=== PATIENT | female | born 1960 | race Caucasian/White ===

== ENCOUNTER 2022-10-08 05:35 | Inpatient (IN) | payer MEDICARE, OTHER ==
[2022-10-08] VITALS (7 sets, daily range): BP systolic 90–144; BP diastolic 60–77; TEMP 97.7–98.4; O2SAT 94–99
[~2022-10-08] VITALS: Ht 167.6 cm; Wt 88.0 kg
[2022-10-08] MEDS ORDERED: dexaMETHasone SOD PHOSPHATE 10 MG/ML VIAL ONE (06:58)
[2022-10-08] MEDS ORDERED: LIDOCAINE 2%-EPI 1:100,000 30 ML VIAL ONE (06:58)
[2022-10-08] MEDS ORDERED: VANCOMYCIN 1 GM VIAL ONE (06:58)
[2022-10-08] MEDS ORDERED: ANESTHESIA TRAY IN PYXIS 1 EA TRAY MC ONE (06:59)
[2022-10-08] MEDS ORDERED: FENTANYL PF 100MCG/2ML AMPUL ONE (07:12)
[2022-10-08] MEDS ORDERED: FAMOTIDINE/PF INJ 20 MG/2 ML VIAL IV ONE (07:12)
[2022-10-08] MEDS ORDERED: OXYMETAZOLINE HCL NASAL SPRAY 30 ML BOTTLE NS ONE (07:12)
[2022-10-08] MEDS ORDERED: LABETALOL HCL IV 100MG VIAL ONE (07:12)
[2022-10-08] MEDS ORDERED: ROCURONIUM BROMIDE 50 MG/5 ML ONE (07:13)
[2022-10-08] MEDS ORDERED: Magnesium 1 GM/2 ML VIAL ONE (07:13)
[2022-10-08] MEDS: DAPAGLIFLOZIN PROPANEDIOL 5 MG TABLET PO SCH (09:00)
[2022-10-08] MEDS ORDERED: GLYCOPYRROLATE 0.2 MG/ML VIAL ONE ×2 (10:30)
[2022-10-08] MEDS ORDERED: ONDANSETRON HCL/PF 4 MG/2 ML VIAL IV PRN (11:30)
[2022-10-08] MEDS ORDERED: ACETAMINOPHEN 325 MG TABLET PO PRN ×2 (11:30→13:30)
[2022-10-08] MEDS ORDERED: IV NS 0.9% 1,000 ML IV PRN (11:30)
[2022-10-08] MEDS ORDERED: HYDROMORPHONE 1 MG/1 ML DISP.SYRIN IV PRN (11:30)
[2022-10-08] MEDS ORDERED: LISI40TA13 PO (11:36)
[2022-10-08] MEDS ORDERED: MECL-159 PO (11:36)
[2022-10-08] MEDS ORDERED: HYDR25TA4 PO (11:36)
[2022-10-08] MEDS ORDERED: METF-442 PO (11:36)
[2022-10-08] MEDS ORDERED: OMEP20CA15 PO (11:36)
[2022-10-08] MEDS ORDERED: GABA600T12 PO (11:36)
[2022-10-08] MEDS ORDERED: INSU100I45 SQ (11:36)
[2022-10-08] MEDS ORDERED: POTA-88 PO (11:36)
[2022-10-08] MEDS ORDERED: DAPA10TA PO (11:36)
[2022-10-08] MEDS ORDERED: MOUNJARO SQ (11:36)
[2022-10-08] MEDS ORDERED: GLIP10TA11 PO (11:36)
[2022-10-08] MEDS ORDERED: HYDR-4077 PO (11:36)
[2022-10-08] MEDS ORDERED: ERGO500093 PO (11:36)
[2022-10-08] MEDS ORDERED: ROSU40TA23 PO (11:36)
[2022-10-08] MEDS ORDERED: ERGOCALCIFEROL (VITAMIN D 2) 50,000 UNIT CAPSULE PO SCH (13:00)
[2022-10-08] MEDS: ATORVASTATIN 40 MG TABLET PO SCH (13:00)
[2022-10-08] MEDS ORDERED: HYDROCODONE/APAP 5/325MG TABLET PO PRN (13:30)
[2022-10-08] MEDS ORDERED: DEXTROSE 50%-WATER 50 ML DISP.SYRIN IV PRN (13:30)
[2022-10-08] MEDS ORDERED: ZOLPIDEM TARTRATE 5 MG TABLET PO PRN (13:30)
[2022-10-08] MEDS ORDERED: MAG HYDROX/AL HYDROX/SIMETH 30 ML UDC PO PRN (13:30)
[2022-10-08] MEDS: PANTOPRAZOLE 40 MG VIAL IV SCH (13:30)
[2022-10-08] MEDS ORDERED: ONDANSETRON HCL/PF 4 MG/2 ML VIAL IVP PRN (13:30)
[2022-10-08] MEDS ORDERED: MAGNESIUM HYDROXIDE 30 ML UDC PO PRN (13:30)
[2022-10-08] MEDS ORDERED: Z GUARD REMEDY 4 OZ OINT TP PRN (13:30)
[2022-10-08] MEDS: MORPHINE SULFATE INJ 2 MG/ML DISP.SYRIN IV PRN ×2 (15:28→22:00)
[2022-10-08] MEDS: BLOOD SUGAR DIAGNOSTIC 1 EACH STRIP IN SCH ×2 (17:27→21:59)
[2022-10-08] MEDS: INSULIN REGULAR, HUMAN 100 UNIT/ML 3 ML VIAL SQ PRN ×2 (17:28→22:37)
[2022-10-08] MEDS ORDERED: INSULIN NPH, HUMAN ISOPHANE 100 UNIT/ML CARTRIDGE SQ SCH (18:00)
[2022-10-08] MEDS: VANCOMYCIN 1 GM in IV D5W 250ml IV SCH (21:35)
[2022-10-09] MEDS: VANCOMYCIN 1 GM in IV D5W 250ml IV SCH (06:05)
[2022-10-09 06:12] LABS: BASOPHILS % (AUTO) 0.2 % (0.0-2.0); EOSINOPHILS # (AUTO) 0.1 K/uL (0.0-0.7); EOSINOPHILS % (AUTO) 0.7 % (0.0-6.0); HEMATOCRIT 40 % (33-45); LYMPHOCYTES # (AUTO) 2.3 K/uL (0.8-4.8); LYMPHOCYTES % (AUTO) 19.3 % (20.0-44.0); MEAN CORPUSCULAR HEMOGLOBIN 29 PG (26.0-33.0); MEAN CORPUSCULAR HGB CONC 33 g/dl (31.0-36.0); MEAN CORPUSCULAR VOLUME 87 fL (82-100); MONOCYTES # (AUTO) 0.9 K/uL (0.1-1.30); MONOCYTES % (AUTO) 7.6 % (2.0-12.0); NEUTROPHILS # (AUTO) 8.5 K/uL (1.8-8.9); NEUTROPHILS % (AUTO) 72.2 % (43.0-81.0); PLATELET COUNT (AUTO) 203 K/uL (150-450); RED BLOOD CELL COUNT(AUTO) 4.54 MIL/uL (4.0-5.2); RED CELL DISTRIBUTION WIDTH 14.7 % (11.5-15.0); WHITE BLOOD COUNT (AUTO) 11.7 K/uL (4.3-11.0)
[2022-10-09 06:27] LABS: CALCIUM, SERUM 8.7 mg/dL (8.5-10.1); CREATININE 0.7 mg/dL (0.6-1.3); PHOSPHORUS 3.7 mg/dL (2.5-4.9); POTASSIUM 3.8 mmol/L (3.5-5.1)
[2022-10-09] MEDS: BLOOD SUGAR DIAGNOSTIC 1 EACH STRIP IN SCH ×2 (07:34→11:34)
[2022-10-09] MEDS: INSULIN REGULAR, HUMAN 100 UNIT/ML 3 ML VIAL SQ PRN (07:35)
[2022-10-09 08:00] VITALS: BP 120/64; TEMP 97.9; O2SAT 98
[2022-10-09] MEDS: PANTOPRAZOLE 40 MG VIAL IV SCH (08:29)
[2022-10-09] MEDS: ATORVASTATIN 40 MG TABLET PO SCH (08:29)
[2022-10-09 08:31] VITALS: BP 120/64
[2022-10-09] MEDS: DAPAGLIFLOZIN PROPANEDIOL 5 MG TABLET PO SCH (08:38)
[2022-10-09] MEDS ORDERED: HYDROCHLOROTHIAZIDE 25 MG TABLET PO SCH (09:00)
[2022-10-09] MEDS ORDERED: MECLIZINE HCL 25 MG TABLET PO SCH (09:00)
[2022-10-09] MEDS ORDERED: hydrALAZINE HCL 50 MG TABLET PO SCH (09:00)
[2022-10-09] MEDS ORDERED: LISINOPRIL (20MG) 20 MG TABLET PO SCH (09:00)
[2022-10-09] MEDS ORDERED: HYDR-3972 PO (13:23)
[2022-10-09] MEDS ORDERED: DOCU-270 PO (13:23)
[2022-10-10] MEDS ORDERED: PANTOPRAZOLE 40 MG/PACK PACK PO SCH (09:00)
== END 2022-10-09 13:05 | disposition home or self-care (01) | DRG 908 ==
LOC: DS 05:35 → MED 05:36
PROVIDERS: ADMIT Dentist Oral and Maxillofacial Surgery; ATTEND Dentist Oral and Maxillofacial Surgery
PROC: 0NRT07Z Replacement of Right Mandible with Autologous Tissue Substitute, Open Approach (ICD-10-PCS; principal; 2022-10-08)
PROC: 0NST04Z Reposition Right Mandible with Internal Fixation Device, Open Approach (ICD-10-PCS; 2022-10-08)
PROC: 0NSR04Z Reposition Maxilla with Internal Fixation Device, Open Approach (ICD-10-PCS; 2022-10-08)
PROC: 0NPW04Z Removal of Internal Fixation Device from Facial Bone, Open Approach (ICD-10-PCS; 2022-10-08)
PROC: 0NBR0ZX Excision of Maxilla, Open Approach, Diagnostic (ICD-10-PCS; 2022-10-08)
DX: T86.832 Bone graft infection (principal); S02.40CK Maxillary fracture, right side, subsequent encounter for fracture with nonunion; S02.609K Fracture of mandible, unspecified, subsequent encounter for fracture with nonunion; T86.831 Bone graft failure; D48.1 Neoplasm of uncertain behavior of connective and other soft tissue; E11.9 Type 2 diabetes mellitus without complications; E78.5 Hyperlipidemia, unspecified; I10 Essential (primary) hypertension; Z79.4 Long term (current) use of insulin; Z79.84 Long term (current) use of oral hypoglycemic drugs; Z79.899 Other long term (current) drug therapy; E66.9 Obesity, unspecified; Z68.31 Body mass index [BMI] 31.0-31.9, adult; Y92.009 Unspecified place in unspecified non-institutional (private) residence as the place of occurrence of the external cause; Y83.2 Surgical operation with anastomosis, bypass or graft as the cause of abnormal reaction of the patient, or of later complication, without mention of misadventure at the time of the procedure; X58.XXXD Exposure to other specified factors, subsequent encounter
CPT/HCPCS: 36415; 80048-TC; 80061-TC; 82962-TC; 83735-TC; 84100-TC; 84132-TC; 85025-TC; 87081-TC; A4223; C1713; C9113; G0378; J1100; J1170; J1815; J2270; J2370; J2405; J2704; J2765; J3010; J3370; J3475; J3490; J7030; J7060; J8597

== ENCOUNTER 2023-02-18 10:23 | Inpatient (IN) | payer MEDICARE, OTHER ==
[~2023-02-18] VITALS: Ht 167.6 cm; Wt 83.0 kg
[~2023-02-18 10:23] MED LIST: DAPA10TA PO; DOCU-270 PO; ERGO500093 PO; GABA600T12 PO; GLIP10TA11 PO; HYDR-3972 PO; HYDR-4077 PO; HYDR25TA4 PO; INSU100I45 SQ; LISI40TA13 PO; MECL-159 PO; METF-442 PO; MOUNJARO SQ; OMEP20CA15 PO; ROSU40TA23 PO
[2023-02-18] MEDS ORDERED: NPH.100V2 SQ (10:52)
[2023-02-18] MEDS ORDERED: VANCOMYCIN 1 GM VIAL ONE (11:40)
[2023-02-18] MEDS ORDERED: LIDOCAINE 2%-EPI 1:100,000 30 ML VIAL ONE (11:40)
[2023-02-18] MEDS ORDERED: dexaMETHasone SOD PHOSPHATE 2 ML ONE (11:40)
[2023-02-18] MEDS ORDERED: IV NS 0.9% 1,000 ML IV PRN (14:30)
[2023-02-18] MEDS ORDERED: HYDROMORPHONE 1 MG/1 ML DISP.SYRIN IV PRN (15:00)
[2023-02-18] MEDS ORDERED: ONDANSETRON HCL/PF 4 MG/2 ML VIAL IVP PRN ×2 (15:00→18:00)
[2023-02-18] MEDS ORDERED: ACETAMINOPHEN 325 MG TABLET PO PRN ×2 (15:00→18:00)
[2023-02-18] MEDS ORDERED: hydrALAZINE HCL 50 MG TABLET PO PRN (18:00)
[2023-02-18] MEDS ORDERED: DEXTROSE 50%-WATER 50 ML DISP.SYRIN IV PRN ×2 (18:00)
[2023-02-18] MEDS ORDERED: INSULIN REGULAR, HUMAN 100 UNIT/ML 3 ML VIAL SQ PRN (18:00)
[2023-02-18] MEDS ORDERED: Z GUARD REMEDY 4 OZ OINT TP PRN (18:00)
[2023-02-18] MEDS ORDERED: MAGNESIUM HYDROXIDE 30 ML UDC PO PRN (18:00)
[2023-02-18] MEDS ORDERED: MAG HYDROX/AL HYDROX/SIMETH 30 ML UDC PO PRN (18:00)
[2023-02-18] MEDS ORDERED: ZOLPIDEM TARTRATE 5 MG TABLET PO PRN (18:00)
[2023-02-18] MEDS ORDERED: ERGOCALCIFEROL (VITAMIN D 2) 50,000 UNIT CAPSULE PO SCH (18:00)
[2023-02-18] MEDS ORDERED: MECLIZINE HCL 25 MG TABLET PO PRN (18:00)
[2023-02-18 20:00] VITALS: BP 152/71; TEMP 98; O2SAT 95
[2023-02-18] MEDS ORDERED: ATORVASTATIN 40 MG TABLET PO SCH (22:00)
[2023-02-18] MEDS ORDERED: BLOOD SUGAR DIAGNOSTIC 1 EACH STRIP IN SCH (22:00)
[2023-02-18] MEDS: GABAPENTIN 300 MG CAPSULE PO SCH ×2 (22:17→22:59)
[2023-02-18] MEDS: BLOOD SUGAR DIAGNOSTIC 1 EACH STRIP IN SCH (22:44)
[2023-02-18] MEDS: VANCOMYCIN 1 GM in IV D5W 250ml IV SCH (23:00)
[2023-02-18] MEDS: INSULIN REGULAR, HUMAN 100 UNIT/ML 3 ML VIAL SQ PRN (23:04)
[2023-02-18] MEDS: HYDROCODONE/APAP 10/325MG TABLET PO PRN (23:18)
[2023-02-19] MEDS: BLOOD SUGAR DIAGNOSTIC 1 EACH STRIP IN SCH ×2 (06:56→12:50)
[2023-02-19] MEDS: INSULIN REGULAR, HUMAN 100 UNIT/ML 3 ML VIAL SQ PRN ×2 (06:59→12:54)
[2023-02-19 07:25] LABS: BASOPHILS % (AUTO) 0.3 % (0.0-2.0); HEMATOCRIT 41 % (33-45); HEMOGLOBIN 13.9 g/dL (11.5-14.8); LYMPHOCYTES # (AUTO) 1.6 K/uL (0.8-4.8); MEAN CORPUSCULAR HEMOGLOBIN 29 PG (26.0-33.0); MEAN CORPUSCULAR HGB CONC 34 g/dl (31.0-36.0); MEAN CORPUSCULAR VOLUME 85 fL (82-100); MONOCYTES # (AUTO) 0.7 K/uL (0.1-1.30); MONOCYTES % (AUTO) 5.1 % (2.0-12.0); NEUTROPHILS % (AUTO) 82.6 % (43.0-81.0); PLATELET COUNT (AUTO) 242 K/uL (150-450); RED BLOOD CELL COUNT(AUTO) 4.85 MIL/uL (4.0-5.2); RED CELL DISTRIBUTION WIDTH 13.9 % (11.5-15.0); WHITE BLOOD COUNT (AUTO) 13.3 K/uL (4.3-11.0)
[2023-02-19] MEDS ORDERED: PANTOPRAZOLE 40 MG TABLET.DR PO SCH (07:30)
[2023-02-19 08:00] VITALS: BP_SYST 114; BP_SYST 117; BP_DIAS 60; BP_DIAS 67; TEMP 98.2; TEMP 98.4; O2SAT 98
[2023-02-19 08:17] LABS: CALCIUM, SERUM 9.2 mg/dL (8.5-10.1); CREATININE 0.8 mg/dL (0.6-1.3); MAGNESIUM 2.2 mg/dL (1.8-2.4); PHOSPHORUS 3.9 mg/dL (2.5-4.9); POTASSIUM 4.1 mmol/L (3.5-5.1)
[2023-02-19] MEDS ORDERED: LISINOPRIL (20MG) 20 MG TABLET PO SCH (09:00)
[2023-02-19] MEDS ORDERED: DAPAGLIFLOZIN PROPANEDIOL 5 MG TABLET PO SCH (09:00)
[2023-02-19] MEDS ORDERED: glipiZIDE 10 MG TABLET PO SCH (09:00)
[2023-02-19] MEDS ORDERED: METFORMIN 500 MG TABLET PO SCH (09:00)
[2023-02-19] MEDS ORDERED: HYDROCHLOROTHIAZIDE 25 MG TABLET PO SCH (09:00)
[2023-02-19 09:14] VITALS: BP 114/67
[2023-02-19] MEDS: HYDROCODONE/APAP 10/325MG TABLET PO PRN (09:35)
[2023-02-19] MEDS: VANCOMYCIN 1 GM in IV D5W 250ml IV SCH (10:09)
[2023-02-19] MEDS ORDERED: ACET325T53 PO (11:51)
[2023-02-19] MEDS ORDERED: AMOX1TAB16 PO (11:51)
[2023-02-19] MEDS ORDERED: AMOX/CLAVULANATE 875 MG TABLET PO SCH (21:00)
== END 2023-02-19 13:30 | disposition home or self-care (01) | DRG 496 ==
LOC: DS 10:23 → MED 11:10
PROVIDERS: ADMIT Nurse Practitioner Acute Care; ATTEND Nurse Practitioner Acute Care
PROC: 0NUT0JZ Supplement Right Mandible with Synthetic Substitute, Open Approach (ICD-10-PCS; principal; 2023-02-18)
PROC: 0NPW04Z Removal of Internal Fixation Device from Facial Bone, Open Approach (ICD-10-PCS; 2023-02-18)
PROC: 0NUV07Z Supplement Left Mandible with Autologous Tissue Substitute, Open Approach (ICD-10-PCS; 2023-02-18)
PROC: 0NPW0JZ Removal of Synthetic Substitute from Facial Bone, Open Approach (ICD-10-PCS; 2023-02-18)
PROC: 0NBV0ZX Excision of Left Mandible, Open Approach, Diagnostic (ICD-10-PCS; 2023-02-18)
PROC: 0NBT0ZX Excision of Right Mandible, Open Approach, Diagnostic (ICD-10-PCS; 2023-02-18)
DX: T84.69XA Infection and inflammatory reaction due to internal fixation device of other site, initial encounter (principal); S02.69XK Fracture of mandible of other specified site, subsequent encounter for fracture with nonunion; T86.831 Bone graft failure; T84.7XXA Infection and inflammatory reaction due to other internal orthopedic prosthetic devices, implants and grafts, initial encounter; E11.9 Type 2 diabetes mellitus without complications; E78.5 Hyperlipidemia, unspecified; I10 Essential (primary) hypertension; Y83.2 Surgical operation with anastomosis, bypass or graft as the cause of abnormal reaction of the patient, or of later complication, without mention of misadventure at the time of the procedure; Y83.8 Other surgical procedures as the cause of abnormal reaction of the patient, or of later complication, without mention of misadventure at the time of the procedure; Y92.009 Unspecified place in unspecified non-institutional (private) residence as the place of occurrence of the external cause; M27.49 Other cysts of jaw; D16.5 Benign neoplasm of lower jaw bone
CPT/HCPCS: 36415; 80048-TC; 82962-TC; 83735-TC; 84100-TC; 85025-TC; 88305-TC; 88311-TC; 88312-TC; A4223; C1713; G0378; J0690; J1100; J1170; J1200; J1815; J2704; J3370; J3490; J7030; J7060

== ENCOUNTER 2024-03-09 12:31 | Outpatient (CLI) | payer MEDICARE, OTHER ==
[~2024-03-09 12:31] MED LIST changes: +ACET325T53 PO; +AMOX1TAB16 PO; -DOCU-270 PO; -HYDR-3972 PO; +NPH.100V2 SQ
[2024-03-09 14:12] LABS: BASOPHILS # (AUTO) 0.1 K/uL (0.0-0.2); BASOPHILS % (AUTO) 0.6 % (0.0-2.0); EOSINOPHILS # (AUTO) 0.3 K/uL (0.0-0.7); EOSINOPHILS % (AUTO) 3.3 % (0.0-6.0); HEMATOCRIT 44 % (33-45); HEMOGLOBIN 15.1 g/dL (11.5-14.8); LYMPHOCYTES # (AUTO) 2.8 K/uL (0.8-4.8); LYMPHOCYTES % (AUTO) 33.2 % (20.0-44.0); MEAN CORPUSCULAR HEMOGLOBIN 29 PG (26.0-33.0); MEAN CORPUSCULAR HGB CONC 34 g/dl (31.0-36.0); MEAN CORPUSCULAR VOLUME 85 fL (82-100); MONOCYTES # (AUTO) 0.5 K/uL (0.1-1.30); MONOCYTES % (AUTO) 6.3 % (2.0-12.0); NEUTROPHILS # (AUTO) 4.8 K/uL (1.8-8.9); NEUTROPHILS % (AUTO) 56.6 % (43.0-81.0); PLATELET COUNT (AUTO) 213 K/uL (150-450); RED BLOOD CELL COUNT(AUTO) 5.17 MIL/uL (4.0-5.2); RED CELL DISTRIBUTION WIDTH 14.1 % (11.5-15.0); WHITE BLOOD COUNT (AUTO) 8.4 K/uL (4.3-11.0)
[2024-03-09 14:20] LABS: PARTIAL THROMBOPLASTIN TIME 26.5 SEC (24.3-34.3); PROTHROMBIN TIME 10.6 SECS (9.2-11.1)
[2024-03-09 14:31] LABS: ALBUMIN 4.1 g/dL (3.4-5.0); BILIRUBIN,TOTAL 0.5 mg/dL (0.2-1.0); CALCIUM, SERUM 8.8 mg/dL (8.5-10.1); CREATININE 0.9 mg/dL (0.6-1.3); POTASSIUM 3.7 mmol/L (3.5-5.1); TOTAL PROTEIN, SERUM 7.2 g/dL (6.4-8.2)
== END 2024-03-09 23:59 | disposition home or self-care (01) ==
LOC: RAD 12:31
PROVIDERS: ATTEND Internal Medicine Interventional Cardiology
DX: Z01.818 Encounter for other preprocedural examination (principal); D68.9 Coagulation defect, unspecified; M47.814 Spondylosis without myelopathy or radiculopathy, thoracic region
CPT/HCPCS: 36415; 71046; 80053-TC; 85025-TC; 85730-TC

== ENCOUNTER 2024-03-22 10:01 | Inpatient (IN) | payer MEDICARE, OTHER ==
[~2024-03-22] VITALS: Ht 167.6 cm; Wt 81.6 kg
[2024-03-22] MEDS ORDERED: LIDOCAINE 2% JEL UROJET 10 ML MM ONE (11:13)
[2024-03-22] MEDS ORDERED: FAMOTIDINE/PF INJ 20 MG/2 ML VIAL IV ONE (11:14)
[2024-03-22] MEDS ORDERED: FENTANYL PF 100MCG/2ML AMPUL ONE (11:14)
[2024-03-22] MEDS ORDERED: OXYMETAZOLINE HCL NASAL SPRAY 30 ML BOTTLE NS ONE (11:14)
[2024-03-22] MEDS ORDERED: ROCURONIUM BROMIDE 50 MG/5 ML ONE (11:14)
[2024-03-22] MEDS ORDERED: MIDAZOLAM HCL 2 MG/2ML VIAL ONE (11:14)
[2024-03-22] MEDS ORDERED: dexaMETHasone SOD PHOSPHATE 2 ML ONE (11:20)
[2024-03-22] MEDS ORDERED: VANCOMYCIN 1 GM VIAL ONE (11:20)
[2024-03-22] MEDS ORDERED: LIDOCAINE 2%-EPI 1:100,000 30 ML VIAL ONE (11:20)
[2024-03-22 13:50] VITALS: BP 162/96; TEMP 97.6
[2024-03-22] MEDS ORDERED: ONDANSETRON HCL/PF 4 MG/2 ML VIAL IVP PRN ×2 (15:00→16:00)
[2024-03-22] MEDS ORDERED: Z GUARD REMEDY 4 OZ OINT TP PRN (16:00)
[2024-03-22] MEDS ORDERED: hydrALAZINE HCL 50 MG TABLET PO PRN (16:00)
[2024-03-22] MEDS ORDERED: ACETAMINOPHEN 325 MG TABLET PO PRN (16:00)
[2024-03-22] MEDS: ACETAMINOPHEN 325 MG TABLET PO PRN (16:39)
[2024-03-22] MEDS ORDERED: INSULIN NPH, HUMAN ISOPHANE 100 UNIT/ML VIAL SQ SCH (18:00)
[2024-03-22] MEDS: IV NS 0.9% 1,000 ML IV PRN (19:58)
[2024-03-22 20:00] VITALS: BP 142/73; TEMP 98.1; O2SAT 96
[2024-03-22] MEDS: GABAPENTIN 300 MG CAPSULE PO SCH (21:49)
[2024-03-22] MEDS: ATORVASTATIN 40 MG TABLET PO SCH (21:49)
[2024-03-22] MEDS: HYDROMORPHONE 1 MG/1 ML DISP.SYRIN IV PRN (21:51)
[2024-03-22] MEDS: INSULIN GLARGINE, 100 UNIT/ML CARTRIDGE SQ SCH (22:21)
[2024-03-22] MEDS: VANCOMYCIN 1 GM in IV D5W 250ml IV SCH (23:26)
[2024-03-23 06:46] LABS: BASOPHILS % (AUTO) 0.1 % (0.0-2.0); HEMATOCRIT 40 % (33-45); LYMPHOCYTES # (AUTO) 1.3 K/uL (0.8-4.8); LYMPHOCYTES % (AUTO) 9.9 % (20.0-44.0); MEAN CORPUSCULAR HEMOGLOBIN 30 PG (26.0-33.0); MEAN CORPUSCULAR HGB CONC 35 g/dl (31.0-36.0); MEAN CORPUSCULAR VOLUME 85 fL (82-100); MONOCYTES # (AUTO) 0.5 K/uL (0.1-1.30); NEUTROPHILS # (AUTO) 11.4 K/uL (1.8-8.9); PLATELET COUNT (AUTO) 215 K/uL (150-450); RED BLOOD CELL COUNT(AUTO) 4.66 MIL/uL (4.0-5.2); RED CELL DISTRIBUTION WIDTH 13.7 % (11.5-15.0); WHITE BLOOD COUNT (AUTO) 13.2 K/uL (4.3-11.0)
[2024-03-23 07:07] LABS: CALCIUM, SERUM 9.2 mg/dL (8.5-10.1); CREATININE 0.8 mg/dL (0.6-1.3); MAGNESIUM 2.1 mg/dL (1.8-2.4); PHOSPHORUS 3.8 mg/dL (2.5-4.9); POTASSIUM 4.2 mmol/L (3.5-5.1)
[2024-03-23 07:30] VITALS: BP 130/66; TEMP 98.1; O2SAT 94
[2024-03-23 08:06] VITALS: BP 130/66
[2024-03-23] MEDS: HYDROCHLOROTHIAZIDE 25 MG TABLET PO SCH (08:06)
[2024-03-23] MEDS: glipiZIDE 10 MG TABLET PO SCH (08:06)
[2024-03-23] MEDS: PANTOPRAZOLE 40 MG TABLET.DR PO SCH (08:06)
[2024-03-23] MEDS: LISINOPRIL (20MG) 20 MG TABLET PO SCH (08:06)
== END 2024-03-23 13:00 | disposition home or self-care (01) | DRG 145 ==
LOC: DS 10:01 → MED 14:10
PROVIDERS: ADMIT Nurse Practitioner Acute Care; ATTEND Nurse Practitioner Acute Care
PROC: 0WQ Anatomical Regions, General, Repair (ICD-10-PCS; principal; 2024-03-22)
PROC: 0N5T0ZZ Destruction of Right Mandible, Open Approach (ICD-10-PCS; 2024-03-22)
DX: D16.5 Benign neoplasm of lower jaw bone (principal); M26.03 Mandibular hyperplasia; E11.9 Type 2 diabetes mellitus without complications; E66.9 Obesity, unspecified; E78.5 Hyperlipidemia, unspecified; I10 Essential (primary) hypertension; Z79.4 Long term (current) use of insulin; Z79.84 Long term (current) use of oral hypoglycemic drugs; Z79.899 Other long term (current) drug therapy; Z68.29 Body mass index [BMI] 29.0-29.9, adult; M89.38 Hypertrophy of bone, other site
CPT/HCPCS: 36415; 80048-TC; 82962-TC; 83735-TC; 84100-TC; 85025-TC; A4223; A4338; G0378; J1100; J1171; J1815; J2250; J2405; J2704; J3010; J3370; J3490; J7030; J7050; J7060